=== PATIENT | female | born 1995 | race Caucasian/White ===

== ENCOUNTER 2019-06-21 15:08 | Outpatient (CLI) | payer BC, SELFPAY ==
[2019-06-21 15:59] LABS: Albumin Level 3.7 g/dL (3.5-5.2); Alkaline Phosphatase 69 IU/L (35-105); Globulin 3.6 g/dL (1.3-4.6); Total Bilirubin 0.4 mg/dL (0.15-1.2); Total Protein 7.3 g/dL (6.6-8.7)
[2019-06-21 19:56] LABS: Alanine Aminotransferase 171 U/L (0-33); Aspartate Amino Transferase 72 U/L (0-32)
== END 2019-06-21 15:09 | disposition home or self-care (01) ==
LOC: LAB 15:15
PROVIDERS: Family Provider Family Medicine; PCP Family Medicine
DX: K76.0 Fatty (change of) liver, not elsewhere classified (principal)
CPT/HCPCS: 36415; 80076

== ENCOUNTER → 2020-04-01 10:39 | Outpatient (BNVA) | payer BC, SELFPAY | PROVIDERS: Family Provider Family Medicine; PCP Nurse Practitioner Family; Visit Provider Internal Medicine | DX: M79.643 Pain in unspecified hand (principal); Z79.899 Other long term (current) drug therapy; Z11.59 Encounter for screening for other viral diseases; Z11.1 Encounter for screening for respiratory tuberculosis; M10.9 Gout, unspecified; M25.50 Pain in unspecified joint; R53.83 Other fatigue; D86.9 Sarcoidosis, unspecified; K75.81 Nonalcoholic steatohepatitis (NASH); R21 Rash and other nonspecific skin eruption | CPT/HCPCS: 36415; 82728; 82784; 83516; 83540; 83735; 84439; 84443; 84550; 85651; 86140; 86480; 86704; 86803; 86812; 87340; 99204 ==

== ENCOUNTER → 2020-04-14 11:19 | Outpatient (BNVA) | payer BC, SELFPAY | PROVIDERS: Family Provider Family Medicine; PCP Nurse Practitioner Family; Visit Provider Internal Medicine | DX: M79.641 Pain in right hand (principal); M79.642 Pain in left hand; M10.9 Gout, unspecified; R70.0 Elevated erythrocyte sedimentation rate; R21 Rash and other nonspecific skin eruption | CPT/HCPCS: 99213 ==

== ENCOUNTER → 2020-09-13 16:56 | Outpatient (BNVA) | payer BC, SELFPAY | PROVIDERS: Family Provider Family Medicine; PCP Nurse Practitioner Family; Visit Provider Nurse Practitioner | DX: J02.9 Acute pharyngitis, unspecified (principal); J06.9 Acute upper respiratory infection, unspecified | CPT/HCPCS: 87880 ==

== ENCOUNTER → 2020-10-07 09:38 | Outpatient (BNVA) | payer BC, SELFPAY | PROVIDERS: Family Provider Family Medicine; PCP Nurse Practitioner Family; Visit Provider Internal Medicine | DX: M79.643 Pain in unspecified hand (principal); R70.0 Elevated erythrocyte sedimentation rate; R74.01 Elevation of levels of liver transaminase levels | CPT/HCPCS: 99214 ==

== ENCOUNTER 2020-10-25 11:06 | Emergency (ER) | payer BC, SELFPAY ==
[2020-10-25 11:24] VITALS: BP 158/96; PULSE 93; RESP 20; TEMP 37.2; O2SAT 96; BMI 49.1
--- NOTE | 2020-10-25 11:42 | XRR_ITS ---
PROCEDURE INFORMATION: Exam: XR Chest Exam date and time: 10/25/2020 11:42 AM Age: 25 years old Clinical indication: Cough and shortness of breath; Additional info: Wheezing, cough TECHNIQUE: Imaging protocol: XR of the chest. Views: 1 view. COMPARISON: [facility] Chest 2 views 08/10/2014 9:19 AM FINDINGS: Lungs: Unremarkable. No consolidation. Pleural spaces: Unremarkable. No pleural effusion. No pneumothorax. Heart/Mediastinum: Unremarkable. No cardiomegaly. Bones/joints: Unremarkable. XR/XR chest 1V portable [id number] IMPRESSION: No significant abnormality.
--- NOTE | 2020-10-25 11:44 | ED_ITS ---
HPI - General Adult General: Chief complaint: Shortness of Breath/Dyspnea Stated complaint: SOB, Cough Time Seen by Provider: 10/25/20 11:38 History of Present Illness: HPI narrative: Patient complains about cough and wheezing the last few days. Is doing albuterol treatment at home. Is doing prednisone 20 mg twice daily. Onset (ago): day(s) Associated symptoms: Reports cough and dyspnea; Deny chest pain, fevers/chills, headache(s), nausea, rash or vomiting Review of Systems Const: Denies: fever(s), chills or body aches Eyes: Denies: change in vision or blurry vision ENMT: Denies: throat pain or nasal congestion Card: Denies: chest pain or dyspnea on exertion Resp: Reports: dyspnea, non-productive cough and wheezing; Denies: productive cough GI: Denies: abdominal pain, nausea or vomiting Musc: Denies: extremity pain Skin/Breast: Denies: rash Neuro: Denies: headache(s) Psych: Denies: anxiety or depression Ob/Lymph: Denies: easy bruising PFS ED PFSH: Medical History Asthma GERD (gastroesophageal reflux disease) Gout Hypertension Migraine headache Surgical History H/O section (05/26/17) Performed in [place], [place] S/P hernia repair (12/14/18) Hernia repair with mesh?[facility], [place]. S/P laparoscopic cholecystectomy (06/11/16) [facility], [place]. Family History Grandmother Diabetes Paternal Hypertension Paternal Father Hypertension Mother Hypertension Social History Smoking and tobacco status: never smoked Female Reproductive History: Date of last menstrual period: 10/19/20 Physical Exam Const: COMMON NORMALS: no acute distress, average body habitus and patient oriented x3 HENMT: COMMON NORMALS: normocephalic HEAD & SCALP: normal to inspection and normocephalic FACE & SINUS: normal facial exam Eye: COMMON NORMALS: conjunctivae normal GENERAL EYE: appearance normal, both eyes and all related structures CONJUNCTIVA: Yes conjunctivae normal Neck/C-Spine: COMMON NORMALS: no JVD Chest: COMMONS NORMALS: normal inspection of the chest Resp: COMMON NORMALS: normal respiratory effort AUSCULTATION: rhonchi and wheezes Cardio: COMMON NORMALS: no JVD, regular rate and regular rhythm RATE: regular rate RHYTHM: regular rhythm GI: COMMON NORMALS: Normal to inspection, nondistended, normoactive bowel sounds present Extremity: COMMON NORMALS: normal to inspection and full ROM Neuro: COMMON NORMALS: patient oriented x3 Course Vital Signs: Vital signs: Vital Signs Temperature 99.0 F 10/25/20 11:24 Pulse Rate 93 10/25/20 11:24 Respiratory Rate 20 H 10/25/20 11:24 Blood Pressure 158/96 10/25/20 11:24 Pulse Oximetry 96 10/25/20 11:24 Discharge Plan Discharge Prescriptions: No Action lisinopril-hydrochlorothiazide 10-12.5 mg tablet 1 tab PO DAILY RF: 0 prenat.vits,flaco,[id number]-voyy-bqcta Tablet 1 tab PO DAILY RF: 0 cetirizine [Zyrtec] 10 mg tablet 10 mg PO DAILY RF: 0 diclofenac sodium [Voltaren] 1 % gel 2 g topical QID Qty: 100 RF: 2 sertraline [Zoloft] 50 mg tablet 50 mg PO DAILY RF: 0 metformin 500 mg tablet 500 mg PO DAILY RF: 0 colestipol 1 gram tablet 1 gm PO TID RF: 0 albuterol sulfate [ProAir HFA] 90 mcg/actuation HFA aerosol inhaler See Rx Instructions INHALATION .COMPLEX PRN (Reason: shortness of breath or wheezing) Qty: 0 RF: 3 doxycycline hyclate 100 mg capsule 100 mg PO BID 7 Days Qty: 14 RF: 0 Coding Level of Care Code ED Pediatric Sports Medicine Specialist for Rubin Craig
[2020-10-25] MEDS: ipratropium-albuterol 3 mL Neb INHALATION (12:00)
[2020-10-25 12:01] VITALS: PULSE 86; RESP 18; O2SAT 98
[2020-10-25 12:08] VITALS: PULSE 97
[2020-10-25 12:57] VITALS: BP 139/60; PULSE 90; RESP 18; O2SAT 97
== END 2020-10-25 12:58 | disposition home or self-care (01) ==
PROVIDERS: Emergency Provider Nurse Practitioner Family; PCP Nurse Practitioner Family
DX: R05 Cough (principal); R06.2 Wheezing; Z79.84 Long term (current) use of oral hypoglycemic drugs; I10 Essential (primary) hypertension
CPT/HCPCS: 71045; 94640; 96372; 99283; J2930

== ENCOUNTER 2020-10-28 09:57 | Emergency (ER) | payer BC, SELFPAY ==
[2020-10-28] VITALS (7 sets, daily range): BP systolic 112–154; BP diastolic 38–94; PULSE 78–115; RESP 18–24; TEMP 36.6; O2SAT 90–98; BMI 49.1
--- NOTE | 2020-10-28 09:58 | XRR_ITS ---
PROCEDURE INFORMATION: Exam: XR Chest Exam date and time: 10/28/2020 9:58 AM Age: 25 years old Clinical indication: Cough and dyspnea and shortness of breath; Prior surgery; Surgery type: Hernia, c section, gallbladder removal; Additional info: Dyspnea/cough TECHNIQUE: Imaging protocol: XR of the chest. Views: 1 view. COMPARISON: CR (CHEST, ) 10/25/2020 12:02 PM FINDINGS: Lungs: Minimal atelectasis left retrocardiac region. Lungs are otherwise well aerated. Pleural spaces: Unremarkable. No pleural effusion. No pneumothorax. Heart/Mediastinum: Unremarkable. No cardiomegaly. Bones/joints: Unremarkable. XR/XR chest 1V portable [id number] IMPRESSION: Minimal atelectasis left retrocardiac region. Lungs are otherwise well aerated.
--- NOTE | 2020-10-28 10:22 | W.ED.SOB ---
HPI - SOB/Dyspnea General: Chief Complaint: Shortness of Breath/Dyspnea Stated Complaint: SOB Time Seen by Provider: 10/28/20 09:58 History of Present Illness: HPI Narrative: 25-year-old female presents to the emergency room complaining of shortness of breath and loss of sense of taste. She was seen 2 days ago with upper respiratory-like symptoms chest x-ray was normal and she was discharged home on albuterol and steroids since that time she has now developed anosmia. She not really had a fever she does have a cough has been nonproductive when she presents here her sats are in the normal ranges but she still feels short of breath she is currently on doxycycline as well. MD elicited complaint: shortness of breath and cough Pertinent past history: asthma Onset (ago): day(s) Timing: constant Severity: mild Exacerbating factors: exertion and coughing Relieving factors: rest and bronchodilators Known history of: asthma Associated symptoms: Deny abdominal pain, chest congestion, chest pain, cough, diaphoresis, dizziness, extremity pain, fever(s), hemoptysis, lightheadedness, myalgias, nausea, orthopnea, palpitations, paresthesias, polydipsia, polyuria, rash, sense of impending doom, syncope or vomiting Treatment prior to arrival: bronchodilator Review of Systems Const: Denies: fever(s) or diaphoresis ENMT: Denies: throat pain, ear or mastoid pain, nasal discharge or nasal congestion Card: Denies: chest pain, palpitations, lightheadedness, syncope or orthopnea Resp: Reports: dyspnea, non-productive cough and wheezing; Denies: hemoptysis or chest congestion GI: Denies: abdominal pain, nausea or vomiting : Denies: flank pain, difficulty voiding, dysuria, urinary frequency or urinary urgency Musc: Denies: extremity pain Skin/Breast: Denies: rash or pruritus Neuro: Denies: dizziness Endo: Denies: polyuria or polydipsia PFSH ED PFSH: Medical History Asthma GERD (gastroesophageal reflux disease) Gout Hypertension Migraine headache Surgical History H/O section (05/26/17) Performed in [place], [place] S/P hernia repair (12/14/18) Hernia repair with mesh?[place] [place], [place]. S/P laparoscopic cholecystectomy (06/11/16) [place], [place]. Family History Grandmother Diabetes Paternal Hypertension Paternal Father Hypertension Mother Hypertension Social History Smoking and tobacco status: never smoked Female Reproductive History: Date of last menstrual period: 10/19/20 Physical Exam Const: COMMON NORMALS: no acute distress GENERAL APPEARANCE: cooperative and comfortable ORIENTATION/CONSCIOUSNESS: Yes awake, Yes oriented to person, Yes oriented to place and Yes oriented to time HENMT: COMMON NORMALS: normocephalic, atraumatic, hearing grossly normal bilaterally and external ears normal HEAD & SCALP: normocephalic and atraumatic EXTERNAL EAR: Yes external ears normal Neck/C-Spine: COMMON NORMALS: no JVD Resp: COMMON NORMALS: normal respiratory effort, No retractions and No use of accessory muscles AUSCULTATION: wheezes (Scant) Cardio: COMMON NORMALS: no JVD, regular rate, regular rhythm and No murmurs present (Cardio) RATE: regular rate RHYTHM: regular rhythm GI: COMMON NORMALS: Soft to palpation and No hepatosplenomegaly present AUSCULTATION: Yes normoactive bowel sounds PALPATION: Yes Soft to palpation, No Tenderness to palpation present (GI), No Guarding due to palpation present (GI) and Yes No hepatosplenomegaly present Extremity: COMMON NORMALS: normal to inspection, capillary refill normal, no clubbing, cyanosis or edema, no calf tenderness and no pedal edema Neuro: SENSORIUM/ORIENTATION: Yes oriented to person, Yes oriented to place and Yes oriented to time Skin: COMMON NORMALS: no rashes or lesions noted GENERAL SKIN EXAM: no rashes or lesions noted Course Vital Signs: Vital signs: Vital Signs Temperature 97.8 F 10/28/20 10:02 Pulse Rate 92 10/28/20 14:30 Respiratory Rate 18 10/28/20 13:00 Blood Pressure 135/56 10/28/20 14:30 Pulse Oximetry 94 10/28/20 14:30 MDM - SOB/Dyspnea MDM Narrative: Medical decision making narrative: Patient has now developed anosmia and is positive on a Covid rapid antigen test. She takes Metformin she tells me is for ovulation she does not actually have diabetes. Given her BMI she does meet the criteria for monoclonal antibody infusion discussed risk benefits and alternatives patient wishes to proceed. Patient given monoclonal antibody infusion after signing informed consent and discharged home we will have her stop the prednisone discussed this with her at time of discharge, start on dexamethasone monitor O2 sats at home and follow-up with her primary care doctor if not improving. Lab Data: Labs: Lab Results 10/28/20 10/28/20 10/28/20 Range/Units 10:32 10:32 10:41 WBC 8.4 (4.0-10.0) 10^3/ uL RBC 4.98 (4.1-5.3) 10^6/u L Hgb 13.1 (11.5-15.3) g/dL Hct 40.6 (37.0-47.0) % MCV 81.5 (81-99) fL MCH 26.3 L (28.0-34.0) pg MCHC 32.3 (30.0-36.0) g/dL RDW 14.6 (12.1-15.1) % Plt Count 319 (130-400) 10^3/c mm MPV 9.5 (7.4-10.4) fL Neut % (Auto) 70.1 % Lymph % (Auto) 19.1 % Dickson % (Auto) 10.0 % Eos % (Auto) 0.0 % Baso % (Auto) 0.2 % Neut # (Auto) 5.89 (1.8-7.7) 10^3/u L Lymph # (Auto) 1.6 (0.8-4.8) 10^3/u L Dickson # (Auto) 0.8 (0.2-0.9) 10^3/u L Eos # (Auto) 0.0 (0.0-0.8) 10^3/u L Baso # (Auto) 0.0 (0.0-0.1) 10^3/u L Nucleated RBC % (a uto) 0 % Nucleated RBCs # 0.0 /100WBC Specimen Type Sample Site ABG pH (7.35-7.45) ABG pCO2 (35-45) mmHg ABG pO2 (80.0-100.0) mmH g ABG HCO3 (22-26) mmol/L ABG O2 Saturation ABG Base Excess (-2.0-2.0) mmol/ L Tyron Test A-a O2 Gradient (5-10) mmHg Hematocrit (37-47) % Hgb O2 Saturation (95-100) % Carboxyhemoglobin (0.4-20.1) %THgb Methemoglobin (0.4-1.5) % Total Hemoglobin (12-16) g/dL Ionized Calcium (1.1-1.4) mmol/L O2 Delivery Device FiO2 % Almond Blancher ID Sodium 132 L (136-145) mmol/L Potassium 4.0 (3.5-5.1) mmol/L Chloride 93 L (98-107) mmol/L Carbon Dioxide 26 (22-29) mmol/L Anion Gap 17.0 (5-19) BUN 19 (6-20) mg/dL Creatinine 0.7 (0.5-0.9) mg/dL GFR Calculation 102.8 (90-130) mL/min Glucose 99 (65-115) mg/dL Calculated Osmolal ity 276 L (285-295) mOsm/k g Calcium 9.1 (8.5-10.5) mg/dL SARS-CoV-2 Ag (Rap id) Positive H (Negative) 10/28/20 Range/Units 10:48 WBC (4.0-10.0) 10^3/ uL RBC (4.1-5.3) 10^6/u L Hgb (11.5-15.3) g/dL Hct (37.0-47.0) % MCV (81-99) fL MCH (28.0-34.0) pg MCHC (30.0-36.0) g/dL RDW (12.1-15.1) % Plt Count (130-400) 10^3/c mm MPV (7.4-10.4) fL Neut % (Auto) % Lymph % (Auto) % Dickson % (Auto) % Eos % (Auto) % Baso % (Auto) % Neut # (Auto) (1.8-7.7) 10^3/u L Lymph # (Auto) (0.8-4.8) 10^3/u L Dickson # (Auto) (0.2-0.9) 10^3/u L Eos # (Auto) (0.0-0.8) 10^3/u L Baso # (Auto) (0.0-0.1) 10^3/u L Nucleated RBC % (a uto) % Nucleated RBCs # /100WBC Specimen Type Arterial Sample Site Radial, right ABG pH 7.58 H* (7.35-7.45) ABG pCO2 26.9 L (35-45) mmHg ABG pO2 62.1 L (80.0-100.0) mmH g ABG HCO3 25.4 (22-26) mmol/L ABG O2 Saturation 94.4 ABG Base Excess 4.5 H (-2.0-2.0) mmol/ L Tyron Test Pos A-a O2 Gradient 7.0 (5-10) mmHg Hematocrit 41.0 (37-47) % Hgb O2 Saturation 93.6 L (95-100) % Carboxyhemoglobin 0.1 L (0.4-20.1) %THgb Methemoglobin 0.8 (0.4-1.5) % Total Hemoglobin 13.4 (12-16) g/dL Ionized Calcium 1.1 (1.1-1.4) mmol/L O2 Delivery Device Room air FiO2 21.0 % Almond Blancher ID Monro Sodium 135.0 (136-145) mmol/L Potassium 3.7 (3.5-5.1) mmol/L Chloride (98-107) mmol/L Carbon Dioxide (22-29) mmol/L Anion Gap (5-19) BUN (6-20) mg/dL Creatinine (0.5-0.9) mg/dL GFR Calculation (90-130) mL/min Glucose 103.0 (65-115) mg/dL Calculated Osmolal ity (285-295) mOsm/k g Calcium (8.5-10.5) mg/dL SARS-CoV-2 Ag (Rap id) (Negative) Discharge Plan Discharge Patient Disposition: Home Clinical Impression: COVID-19 Condition: Stable Prescriptions: New dexamethasone 6 mg tablet 6 mg PO DAILY Qty: 7 RF: 0 Discontinued prednisone 20 mg tablet 20 mg PO BID RF: 0 No Action lisinopril-hydrochlorothiazide 10-12.5 mg tablet 1 tab PO BEDTIME RF: 0 prenat.vits,flaco,nny-rcln-mirds Tablet 1 tab PO BEDTIME RF: 0 cetirizine [Zyrtec] 10 mg tablet 10 mg PO BEDTIME RF: 0 sertraline [Zoloft] 50 mg tablet 50 mg PO BEDTIME RF: 0 metformin 500 mg tablet 500 mg PO BEDTIME RF: 0 Mucinex 1,200 mg tablet extended release 12hr 1,200 mg PO BID PRN (Reason: cough) Qty: 14 RF: 0 albuterol sulfate 2.5 mg /3 mL (0.083 %) solution for nebulization 2.5 mg inhalation QID PRN (Reason: Shortness Of Breath) RF: 0 naproxen 250 mg Tablet 500 mg PO PRN RF: 0 Tylenol Extra Strength 500 mg Tablet 1,000 mg PO PRN RF: 0 ProAir HFA 90 mcg/actuation HFA aerosol inhaler 1 - 2 puff INHALATION QID PRN (Reason: shortness of breath or wheezing) RF: 0 Voltaren 1 % gel 2 g topical QID PRN (Reason: Pain) RF: 0 Discharge Orders: Discharge ED (Routine); Ordered 10/28/20 Ordered By: Maximo Lamar Referrals: Chiquis Estrada FNP [Primary Care Provider] - Discharge Diet: Usual diet Discharge Activity: Resume usual activity Patient Instructions: Opioid Safety Activity Restrictions/Additional Instructions: Untreated home O2 sat of falls consistently below 90 to be reevaluated. Maintain self quarantine until at least 14 days after positive Covid test. 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 [facility] Fwd Exam Comprehensive Monoclonal Antibody Treatments Inclusion/Exclusion Criteria [facility] COVID test results: SARS-CoV-2 Antigen (Rapid) Positive (Negative) H 10/28/20 10:41 10/28/20 weight >/= 40 kg and + direct Sars-Cov-2 test less than 7-10 days ago BMI >/= 35 not requiring hospitalization, not requiring oxygen (if not chronically on oxygen) and no increase oxygen requirement (if chronically on oxygen) Patient education patient/family/caregiver received/reviewed fact sheet, Emergency Use Authorization/unapproved drug status discussed with patient/family/caregiver, alternatives to this treatment discussed with patient/family/caregiver, risks and benefits of medication reviewed with patient/family/caregiver, patient/family/caregiver given opportunity for questions, which were answered and patient consents to receiving Monoclonal Antibody Treatment Plan for treatment Meets criteria for Monoclonal Antibody infusion Ordering Monoclonal Antibody infusion for today
[2020-10-28 10:37] LABS: Basophils % 0.2 %; Hematocrit 40.6 % (37.0-47.0); Hemoglobin 13.1 g/dL (11.5-15.3); Lymphocytes # 1.6 10^3/uL (0.8-4.8); Lymphocytes % 19.1 %; Mean Corpuscular HGB Conc 32.3 g/dL (30.0-36.0); Mean Corpuscular Hemoglobin 26.3 pg (28.0-34.0); Mean Corpuscular Volume 81.5 fL (81-99); Mean Platelet Volume 9.5 fL (7.4-10.4); Monocytes # 0.8 10^3/uL (0.2-0.9); Neutrophils # 5.89 10^3/uL (1.8-7.7); Neutrophils % 70.1 %; Nucleated Red Blood Cells % 0 %; Platelet Count 319 10^3/cmm (130-400); Red Blood Count 4.98 10^6/uL (4.1-5.3); Red Cell Distribution Width 14.6 % (12.1-15.1); White Blood Count 8.4 10^3/uL (4.0-10.0)
[2020-10-28 11:02] LABS: ABG PCO2 26.9 mmHg (35-45); Base Excess ABG 4.5 mmol/L (-2.0-2.0); Blood Gas Allen Test Pos; Blood Gas Operator Identificat MONRO; Blood Gas Sample Site Radial, right; Blood Gas Sample Type Arterial; Carboxyhemoglobin 0.1 %THgb (0.4-20.1); HCO3 ABG 25.4 mmol/L (22-26); HGB O2 Sat 93.6 % (95-100); Ionized Calcium Level - ABG 1.1 mmol/L (1.1-1.4); Methemoglobin 0.8 % (0.4-1.5); Oxygen Device ROOM AIR; Oxygen Saturation ABG 94.4; PO2 ABG 62.1 mmHg (80.0-100.0); Potassium Level - ABG 3.7 mmol/L (3.5-5.0); Total Hemoglobin 13.4 g/dL (12-16)
[2020-10-28 11:03] LABS: ABG PH Result 7.58 (7.35-7.45)
--- NOTE | 2020-10-28 11:10 | ECG_ITS ---
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
[2020-10-28 11:13] LABS: Blood Urea Nitrogen 19 mg/dL (6-20); Calcium 9.1 mg/dL (8.5-10.5); Carbon Dioxide 26 mmol/L (22-29); Chloride 93 mmol/L (98-107); Creatinine Clr Calc Pharmacy 148.3961; Glomerular Filtration Rate 102.8 mL/min (90-130); Glucose 99 mg/dL (65-115); Osmolality Calculated 276 mOsm/kg (285-295); Sodium 132 mmol/L (136-145)
[2020-10-28 11:42] LABS: SARS Covid-2 Antigen Positive (Negative)
== END 2020-10-28 14:55 | disposition home or self-care (01) ==
PROVIDERS: Emergency Provider Family Medicine; PCP Nurse Practitioner Family
DX: U07.1 COVID-19 (principal); I10 Essential (primary) hypertension
CPT/HCPCS: 36600; 71045; 80048; 80051; 82330; 82805; 85025; 87426; 93005; 96365; 99284

== ENCOUNTER 2020-11-03 14:51 | Outpatient (CLI) | payer BC, SELFPAY ==
[2020-11-03 16:45] LABS: Albumin Level 3.7 g/dL (3.5-5.2); Alkaline Phosphatase 54 IU/L (35-105); Globulin 2.9 g/dL (1.3-4.6); Total Bilirubin 0.5 mg/dL (0.15-1.2); Total Protein 6.6 g/dL (6.6-8.7)
[2020-11-03 16:59] LABS: Alanine Aminotransferase 90 U/L (0-33); Aspartate Amino Transferase 5 U/L (0-32)
== END 2020-11-03 14:52 | disposition home or self-care (01) ==
LOC: LAB 14:52
PROVIDERS: PCP Nurse Practitioner Family; Visit Provider Student in an Organized Health Care Education/Training Program
DX: U07.1 COVID-19 (principal)
CPT/HCPCS: 80076

== ENCOUNTER 2020-11-06 13:46 | Outpatient (CLI) | payer BC, SELFPAY ==
[2020-11-06 14:44] LABS: D Dimer 0.35 ug/mIFEU (0-0.59)
== END 2020-11-06 13:47 | disposition home or self-care (01) ==
LOC: LAB 13:51
PROVIDERS: PCP Nurse Practitioner Family; Visit Provider Student in an Organized Health Care Education/Training Program
DX: U07.1 COVID-19 (principal)
CPT/HCPCS: 36415; 85378

== ENCOUNTER 2020-12-18 | Outpatient (CLI) | payer BC, SELFPAY ==
[2020-12-18 12:06] LABS: D Dimer 0.46 ug/mIFEU (0-0.59)
== END 2020-12-18 00:01 | disposition home or self-care (01) ==
LOC: LAB 09-14 14:44
PROVIDERS: PCP Nurse Practitioner Family; Visit Provider Nurse Practitioner Family
DX: R07.89 Other chest pain (principal)
CPT/HCPCS: 85378

== ENCOUNTER 2021-04-08 14:34 | Outpatient (CLI) | payer BC, SELFPAY ==
[2021-04-08 15:11] LABS: Hematocrit 38.1 % (37.0-47.0); Mean Corpuscular HGB Conc 31.5 g/dL (30.0-36.0); Mean Corpuscular Hemoglobin 26.3 pg (28.0-34.0); Mean Corpuscular Volume 83.6 fl (81-99); Mean Platelet Volume 9.6 fL (7.4-10.4); Platelet Count 361 10^3/cmm (130-400); Red Blood Count 4.56 10^6/uL (4.1-5.3); White Blood Count 8.8 10^3/uL (4.0-10.0)
[2021-04-08 15:26] LABS: Total Cells Counted 100 (0-100)
[2021-04-08 15:27] LABS: Absolute Neutrophil 4.8 10^3/cmm (1.4-6.5); Absolute Segmented Neutrophil 4.8 10/cmm (1.6-7.1); Eosinophils 0 %; Lymphocytes 38 %; Lymphocytes Absolute 3.3 10^3/cmm (1.2-3.4); Monocytes Absolute 0.6 10^3/cmm (0.1-0.6); Platelet Estimate Normal (Normal); Segmented Neutrophils 55 %
[2021-04-08 15:35] LABS: Alanine Aminotransferase 49 U/L (0-33); Albumin Level 3.9 g/dL (3.5-5.2); Alkaline Phosphatase 56 IU/L (35-105); Anion Gap 14.2 (5-19); Aspartate Amino Transferase 26 U/L (0-32); Blood Urea Nitrogen 16 mg/dL (6-20); Calcium 9.1 mg/dL (8.5-10.5); Carbon Dioxide 27 mmol/L (22-29); Chloride 104 mmol/L (98-107); Creatine Phosphokinase 123 U/L (26-192); Ferritin 32 ng/mL (15-150); Globulin 2.8 g/dL (1.3-4.6); Glomerular Filtration Rate 121.8 mL/min (90-130); Glucose 87 mg/dL (65-115); Iron 38 ug/dL (37-145); Osmolality Calculated 293 mOsm/kg (285-295); Phosphorus 4.6 mg/dL (2.5-4.5); Potassium 4.2 mmol/L (3.5-5.1); Sodium 141 mmol/L (136-145); Total Bilirubin 0.4 mg/dL (0.15-1.2); Total Protein 6.7 g/dL (6.6-8.7)
[2021-04-10 16:49] LABS: Erythrocyte Sedimentation Rate 25 mm/hr (0-15)
== END 2021-04-08 14:35 | disposition home or self-care (01) ==
PROVIDERS: PCP Nurse Practitioner Family; Visit Provider Internal Medicine
DX: R70.0 Elevated erythrocyte sedimentation rate (principal); D86.9 Sarcoidosis, unspecified
CPT/HCPCS: 36415; 80053; 82550; 82728; 83540; 84100; 85007; 85027; 85651; 86140

== ENCOUNTER 2021-08-06 12:12 | Outpatient (CLI) | payer BC, SELFPAY ==
[2021-08-06 12:51] LABS: Basophils % 0.3 %; Eosinophils # 0.1 10^3/uL (0.0-0.8); Eosinophils % 1.1 %; Hematocrit 40.9 % (37.0-47.0); Hemoglobin 12.9 g/dL (11.5-15.3); Lymphocytes # 2.3 10^3/uL (0.8-4.8); Lymphocytes % 25.6 %; Mean Corpuscular HGB Conc 31.5 g/dL (30.0-36.0); Mean Corpuscular Hemoglobin 26.9 pg (28.0-34.0); Mean Corpuscular Volume 85.2 fl (81-99); Mean Platelet Volume 9.4 fL (7.4-10.4); Monocytes # 0.8 10^3/uL (0.2-0.9); Monocytes % 9.1 %; Neutrophils # 5.64 10^3/uL (1.8-7.7); Neutrophils % 63.7 %; Nucleated Red Blood Cells % 0 %; Platelet Count 374 10^3/cmm (130-400); White Blood Count 8.9 10^3/uL (4.0-10.0)
[2021-08-06 12:57] LABS: Erythrocyte Sedimentation Rate 31 mm/hr (0-15)
== END 2021-08-06 12:13 | disposition home or self-care (01) ==
PROVIDERS: PCP Nurse Practitioner Family; Visit Provider Internal Medicine
DX: M25.50 Pain in unspecified joint (principal); R70.0 Elevated erythrocyte sedimentation rate; Z79.899 Other long term (current) drug therapy
CPT/HCPCS: 85025; 85651

== ENCOUNTER 2022-07-15 10:57 | Outpatient (CLI) | payer BC, MEDICAID, SELFPAY ==
[2022-07-15 11:26] LABS: D Dimer 0.79 ug/mIFEU (0-0.59)
== END 2022-07-15 10:58 | disposition home or self-care (01) ==
LOC: LAB 10:58
PROVIDERS: PCP Nurse Practitioner Family; Visit Provider Nurse Practitioner
DX: U09.9 Post COVID-19 condition, unspecified (principal)
CPT/HCPCS: 85378

== ENCOUNTER 2023-07-29 18:02 | Emergency (ER) | payer MEDICAID, SELFPAY ==
[2023-07-29 18:19] VITALS: BP 148/82; PULSE 95; RESP 18; TEMP 36.6; O2SAT 98
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
[2023-07-29 20:18] VITALS: BP 156/96; PULSE 84; RESP 18; O2SAT 98
== END 2023-07-29 21:25 | disposition home or self-care (01) ==
PROVIDERS: Emergency Provider Physician Assistant; PCP Nurse Practitioner Family
DX: S20.229A Contusion of unspecified back wall of thorax, initial encounter (principal); S13.9XXA Sprain of joints and ligaments of unspecified parts of neck, initial encounter; I10 Essential (primary) hypertension; V89.2XXA Person injured in unspecified motor-vehicle accident, traffic, initial encounter
CPT/HCPCS: 72040; 72072; 99284